=== PATIENT | male | born 1930 | race Caucasian/White ===

== ENCOUNTER 2017-01-24 11:02 | Emergency (ER) | payer OTHER, BC ==
[2017-01-24 11:09] VITALS: BMI 32.2
[2017-01-24] MEDS ORDERED: LIDOCAINE 5% TOPICAL PATCH TP ONE (12:20)
[2017-01-24 12:36] LABS: EOSINOPHIL 3.6 % (0-4.5); MCH 33.7 pg (25.7-33.7); MCHC 33.9 g/dl (32.0-35.9); MEAN CELL VOLUME 99.4 fl (80-96); MEAN PLT VOLUME 7.9 fl (7.5-11.1); PLATELET COUNT 239 K/MM3 (134-434); RDW 17.5 % (11.9-15.9); WHITE BLOOD COUNT 6.8 K/mm3 (4.0-10.0)
[2017-01-24 12:41] LABS: URINE APPEARANCE CLEAR; URINE BILIRUBIN NEGATIVE (NEGATIVE); URINE BLOOD NEGATIVE (NEGATIVE); URINE COLOR LTYELLOW; URINE GLUCOSE (UA) NEGATIVE (NEGATIVE); URINE KETONE NEGATIVE (NEGATIVE); URINE LEUK ESTERASE NEGATIVE (NEGATIVE); URINE NITRITE NEGATIVE (NEGATIVE); URINE PROTEIN NEGATIVE (NEGATIVE); URINE UROBILINOGEN NEGATIVE E.U./dl (0.2-1.0)
--- NOTE | 2017-01-24 12:47 | PDOC ---
History of Present Illness - General Chief Complaint: Back Pain Stated Complaint: PAIN Time Seen by Provider: 01/24/17 11:31 History Source: Patient - History of Present Illness Occurred: reports: other Severity: reports: severe Pain Location: reports: back Past History - Past Medical History Allergies/Adverse Reactions: Allergies Allergy/AdvReac Type Severity Reaction Status Date / Time aspirin Allergy Verified 01/24/17 11:03 Home Medications: Ambulatory Orders Lidocaine 5% Patch [Lidoderm Patch -] 1 patch TP DAILY #7 patch 01/24/17 Tramadol HCl 50 mg PO Q6H #15 tablet MDD 200mg 01/24/17 Cancer: Yes (prostate) GI Disorders: Yes (diverticulities) HTN: Yes Hypercholesterolemia: Yes - Surgical History Abdominal Surgery: Yes (colon resection, hx of colostomy with reversal) - Psycho/Social/Smoking Cessation Hx Anxiety: No Suicidal Ideation: No Smoking History: Never smoked Have you smoked in the past 12 months: No Information on smoking cessation initiated: No Hx Alcohol Use: No Drug/Substance Use Hx: No Substance Use Type: None Review of Systems - Review of Systems Constitutional: No: Chills, Fever Respiratory: No: Shortness of Breath Cardiac (ROS): No: Chest Pain ABD/GI: No: Nausea, Vomiting : No: Dysuria, Discharge, Frequency, Hematuria, Testicular Mass, Testicular Swelling Musculoskeletal: Yes: Back Pain Neurological: No: Numbness, Weakness, Dizziness *Physical Exam - Vital Signs Last Vital Signs Temp Pulse Resp BP Pulse Ox 98.6 F 90 18 142/65 100 01/24/17 11:04 01/24/17 11:04 01/24/17 11:04 01/24/17 11:04 01/24/17 11:04 - Physical Exam General Appearance: Yes: Appropriately Dressed, Mild Distress HEENT: positive: Normal Voice Neck: positive: Supple Respiratory/Chest: negative: Respiratory Distress Gastrointestinal/Abdominal: positive: Soft. negative: Tender Musculoskeletal: positive: Normal Inspection. negative: CVA Tenderness Extremity: positive: Normal Inspection Integumentary: positive: Dry, Warm Neurologic: positive: Fully Oriented, Alert, Normal Mood/Affect ED Treatment Course - LABORATORY CBC & Chemistry Diagram: 01/24/17 12:20 01/24/17 12:20 - RADIOLOGY Radiology Studies Ordered: Category Date Time Status SPINE-LUMBAR SACRAL [RAD] Stat Radiology 01/24/17 12:21 Ordered Medical Decision Making - Medical Decision Making 01/24/17 12:34 86 yo male, obesity, HTN, HLD, complicated diverticulitis s/p surgery, prostate ca s/p seeds, p/w LBP. pt states he developed L lower back pain several days ago that has since worsened, worse w/ standing up and walking. Taking tylenol and flexeril w/ no improvement. Denies trauma. No dysuria, hematuria, n/v, abd pain, change to BM, f/c. No h/o similar pain. States he contacted his PMD who referred pt to ED see exam L lower back pain Most likely MSK On meds w/ no relief No trauma No associated sxs Well jose raul and stable w/ no reproducible ttp -pain control -ua -labs -reassess 01/24/17 15:05 Labs wnl. X-ray read as no lytic or blastic lesion, but + lumbar spondylosis and possible acute compression fracture at L2. Additional nonspecific findings also seen. On reassessment, patient reports feeling better with tramadol and now have an easier time bearing weight with pain. Will contact PMD to discuss disposition 01/24/17 15:07 01/24/17 15:[address] Anand, who also reviewed patient's x-ray. Agrees with disposition with pain medication and states patient to follow up with him on Tuesday to arrange outpatient MRI. Patient and family informed and feels safe with patient being discharged. Reasons to return discussed with patient *DC/Admit/Observation/Transfer Diagnosis at time of Disposition: Lower back pain Qualifiers: Chronicity: acute Back pain laterality: left Sciatica presence: without sciatica Qualified Code(s): M54.5 - Low back pain - Discharge Dispostion Disposition: HOME Condition at time of disposition: Improved - Prescriptions Prescriptions: Lidocaine 5% Patch [Lidoderm Patch -] 1 patch TP DAILY #7 patch Tramadol HCl 50 mg PO Q6H #15 tablet MDD 200mg - Patient Instructions Printed Discharge Instructions: Low Back Pain Additional Instructions: Please take medications as directed. Contact Dr Anand on Tuesday to arrange an out-pt MRI of your lower back
[2017-01-24 13:02] LABS: ALK PHOS 65 U/L (45-117); ANION GAP 10 (8-16); BILIRUBIN,TOTAL 0.5 mg/dL (0.2-1.0); CO2 29 mmol/L (21-32); GLUCOSE,RANDOM 108 mg/dL (74-106); SGOT/AST 22 U/L (15-37); SGPT/ALT 25 U/L (12-78)
[2017-01-24] MEDS ORDERED: traMADol HCL 50 MG TABLET PO ONE (13:19)
[2017-01-24] MEDS ORDERED: traMADol HCL 50 MG TABLET ONE (13:42)
--- NOTE | 2017-01-24 14:20 | PDOC ---
*Physical Exam - Vital Signs Last Vital Signs Temp Pulse Resp BP Pulse Ox 98.6 F 90 18 142/65 100 01/24/17 11:04 01/24/17 11:04 01/24/17 11:04 01/24/17 11:04 01/24/17 11:04 ED Treatment Course - LABORATORY CBC & Chemistry Diagram: 01/24/17 12:20 01/24/17 12:20 - ADDITIONAL ORDERS Additional order review: Laboratory Results 01/24/17 01/24/17 12:20 12:20 Sodium 137 Potassium 4.0 Chloride 98 Carbon Dioxide 29 Anion Gap 10 BUN 21 H Creatinine 1.0 Creat Clearance w eGFR > 60 Random Glucose 108 H Calcium 9.0 Total Bilirubin 0.5 AST 22 ALT 25 Alkaline Phosphatase 65 Total Protein 8.0 Albumin 4.0 Urine Color Ltyellow Urine Appearance Clear Urine pH 6.0 Urine Protein Negative Urine Glucose (UA) Negative Urine Ketones Negative Urine Blood Negative Urine Nitrite Negative Urine Bilirubin Negative Urine Urobilinogen Negative Ur Leukocyte Esterase Negative 01/24/17 12:20 RBC 4.33 MCV 99.4 H MCHC 33.9 RDW 17.5 H MPV 7.9 Neutrophils % 70.0 Lymphocytes % 14.2 Monocytes % 11.2 H Eosinophils % 3.6 Basophils % 1.0 - Medications Given in the ED: ED Medications Discontinued Medications Generic Name Dose Route Start Last Admin Trade Name Luca PRN Reason Stop Dose Admin Lidocaine 1 patch 01/24/17 12:20 01/24/17 13:19 Lidoderm Patch - TP 01/24/17 12:21 1 patch ONCE ONE Administration Tramadol HCl 50 mg 01/24/17 13:19 01/24/17 13:44 Ultram - PO 01/24/17 13:20 50 mg ONCE ONE Administration Medical Decision Making - Medical Decision Making 01/24/17 14:18 86 yo M presenting to the ER with a complaint of back pain No trauma Pain is worse with movement UA negative ambulatory Pt seen by Midlevel Provider under my direct supervision Pt interviewed and examined Ancillary studies reviewed I agree with plan as outlined by Midlevel Provider *DC/Admit/Observation/Transfer Diagnosis at time of Disposition: Lower back pain - Discharge Dispostion Disposition: HOME Condition at time of disposition: Improved - Prescriptions Prescriptions: Lidocaine 5% Patch [Lidoderm Patch -] 1 patch TP DAILY #7 patch Tramadol HCl 50 mg PO Q6H #15 tablet MDD 200mg - Referrals Referrals: Ata Parker MD [Primary Care Provider] - - Patient Instructions Printed Discharge Instructions: Low Back Pain Additional Instructions: Please take medications as directed. Contact Dr Anand on Tuesday to arrange an out-pt MRI of your lower back
[2017-01-24 15:33] VITALS: BP 132/68; PULSE 82; TEMP 97.8
[2017-01-24] MEDS ORDERED: LIDOCAINE PATCH REMOVAL MC SCH (22:00)
== END 2017-01-24 15:30 | disposition home or self-care (01) ==
LOC: JERFT 11:02 → JER 11:02
DX: M47.896 Other spondylosis, lumbar region (principal); I10 Essential (primary) hypertension; E78.5 Hyperlipidemia, unspecified; E78.00 Pure hypercholesterolemia, unspecified; Z85.46 Personal history of malignant neoplasm of prostate; Z87.19 Personal history of other diseases of the digestive system
CPT/HCPCS: 36415; 72100-TC; 80053; 81003; 85025; 99282-25